=== PATIENT | female | born 1965 | race Caucasian/White ===

== ENCOUNTER → 2024-01-22 09:22 | Outpatient (REF) | payer OTHER, SELFPAY | LOC: MRI 3T 09:22 | PROVIDERS: ATTENDING PHYSICIAN Physical Medicine & Rehabilitation; FAMILY PHYSICIAN Family Medicine | DX: M54.16 Radiculopathy, lumbar region (principal) | CPT/HCPCS: 72148 ==

== ENCOUNTER → 2024-03-09 10:18 | Outpatient (REF) | payer OTHER, SELFPAY | LOC: WDC 10:18 | PROVIDERS: ATTENDING PHYSICIAN Family Medicine; FAMILY PHYSICIAN Family Medicine | DX: Z12.31 Encounter for screening mammogram for malignant neoplasm of breast (principal) | CPT/HCPCS: 77063; 77067 ==

== ENCOUNTER 2024-06-19 09:25 | Emergency (ER) | payer OTHER, SELFPAY ==
[2024-06-19 09:27] VITALS: BP 146/100
[2024-06-19 09:58] LABS: COVID-19 Antigen Negative (Negative)
[2024-06-19 12:00] VITALS: BP 134/62
[2024-06-19 12:19] LABS: % Basophils 0.5 % (0-2); % Immature Granulocytes 0.5 % (0-0.5); % Lymphocytes 17.8 % (20.5-51.1); % Neutrophils 73.2 % (42.2-75.2); Absolute Lymphocytes 0.7 10^3/uL (1.2-3.4); Absolute Monocytes 0.3 10^3/uL (0.1-0.6); Hematocrit 45.5 % (37.0-47.0); Hemoglobin 15.6 g/dL (12.0-16.0); Mean Corp Hgb Conc. 34.3 g/dL (33.0-37.0); Mean Corpuscular Hgb 30.9 pg (27.0-31.0); Mean Corpuscular Volume 90.1 fL (81.0-99.0); Mean Platelet Volume 9.9 fL (7.4-10.4); Nucleated Red Blood Cells % 0 %; Platelet Count 201 10^3/uL (130-400); Red Blood Cell Count 5.05 10^6/uL (4.20-5.40); Red Cell Dist. Width 12.3 % (11.5-14.5); White Blood Cell Count 4.1 10^3/uL (4.8-10.8)
[2024-06-19] MEDS: MYCOSTATIN ORAL SUSPENSION 5 ML PO (12:42)
[2024-06-19 13:42] LABS: ALT (SGPT) 44 U/L (0-35); AST (SGOT) 60 U/L (14-36); Alkaline Phosphatase 63 U/L (38-126); Blood Urea Nitrogen 22 mg/dl (7-17); Calcium 9.3 mg/dl (8.4-10.2); Carbon Dioxide 22 mmol/L (22-30); Chloride 99 mmol/L (98-107); Glucose 84 mg/dl (70-99); Potassium 4.5 mmol/L (3.5-5.1); Sodium 135 mmol/L (135-145); Total Bilirubin 0.7 mg/dl (0.2-1.3); Total Protein 7.7 g/dl (6.3-8.2); eGFR > 60.00
--- NOTE | 2024-06-19 13:46 | ED.GENMED ---
History of Present Illness
General
Chief Complaint: Cold/Flu/URI Symptoms
Source: patient
Exam Limitations: none
Time Seen by Provider: 06/19/24 11:01
Nursing documentation reviewed up to this point in time: agreed with
History of Present Illness
History of Present Illness:
58-year-old female with past medical history of chronic back pain presenting to the emergency department today with concerns of upper respiratory symptoms body aches over the past 4 days. Developing change in taste and generalized weakness over the
past day or so. Also some discomfort to the left upper quadrant of the abdomen. Denies any nausea vomiting.
Past History
Past History
ED Past Medical History: None
ED Past Surgical History: None
Social History
Tobacco: Non-smoker
Personal:
Living: with family
Review of Systems
Review of Systems
Allergies reviewed?: Yes
All Other Systems: ROS reviewed and negative except as documented in HPI and ROS
Phy Exam
Physical Exam
Physical Exam:
GENERAL: Alert , in no apparent distress
EYE: pupils equal and reactive
NECK: Supple, no significant adenopathy.
ENT: White discoloration of the tongue o/p clr, mmm.
CARDIAC: Regular rate and rhythm .
LUNGS: Clear breath sounds bilaterally, no acute respiratory distress, no wheezes/rales/rhonchi
ABDOMEN: Soft, without focal tenderness, no r/g, no cvat
NEUROLOGICAL: Alert and oriented, no focal neuro deficits
SKIN: Warm and dry, skin intact.
MUSCULOSKELETAL: No edema, well perfused.
PSYCH: Normal and appropriate interaction.
Course
Orders/Labs/Results
Orders:
Orders
06/19/24 09:32
COVID-19 Antigen Urgent
Source: Nasal Swab
Influenza A+B Rapid Molecular Urgent
LATASHA Source: Nasal Swab
Specimen Description:
06/19/24 12:13
CBC/With Diff [Complete Blood Count/With Diff] Urgent
06/19/24 13:00
Nystatin Suspension [Mycostatin Oral Suspension] 5 ml PO ONCE ONE
06/19/24 13:12
Comprehensive Metabolic Panel Urgent
Monotest Urgent
Comment: ADD ON
06/19/24 13:43
Urinalysis Reflex To Culture Urgent
Date Specimen was Collected: 06/19/24
Time Specimen was Collected: 13:42
Urine Microscopic Reflex Cult Urgent
06/19/24 13:51
Add On- LAB Urgent
Tests Added?: Hemphill screen
06/19/24 13:52
0.9% Sodium Chloride 1000 ml [Nss] 1,000 ml IV BOLUS
06/19/24 14:13
Ibuprofen [Motrin] 600 mg PO NOW STA
06/19/24 14:29
Vital Signs- Treatment ONCE
Frequency: Once
Abnormal Lab Results
06/19/24 06/19/24 06/19/24
12:13 13:12 13:43
WBC 4.1 L 10^3/uL
(4.8-10.8)
Absolute Lymphs (auto) 0.7 L 10^3/uL
(1.2-3.4)
Lymphocytes % 17.8 L %
(20.5-51.1)
BUN 22 H mg/dl
(7-17)
AST 60 H U/L
(14-36)
ALT 44 H U/L
(0-35)
Urine Ketones 3+ A
(Negative)
Urine Bacteria (Reflex) Few A
(Negative)
Urine Albumin (Reflex) 2+ A
(Neg - Trace)
06/19/24 12:13
06/19/24 13:12
Vital Signs
Initial and Last Documented VS:
Initial Vital Signs
Temp Pulse Resp BP Pulse Ox
100.3 F 112 16 146/100 100
06/19/24 09:27 06/19/24 09:27 06/19/24 09:27 06/19/24 09:27 06/19/24 09:27
Last Documented Vital Signs
Temp Pulse Resp BP Pulse Ox
100.3 F 85 16 129/86 99
06/19/24 09:27 06/19/24 14:00 06/19/24 14:00 06/19/24 14:00 06/19/24 14:00
MDM/Problems Addressed
MDM/Problems Addressed:
58-year-old female presenting to the emergency department today with concerns of flulike symptoms over the past 4 days. Also has noticed a change in her taste. Things seem to be tasting poor over the past 24 hours. Mildly tachycardic on arrival.
Improved after receiving fluids. Patient does have some white discoloration of her tongue potentially consistent with fungal infection was given a dose of nystatin. Here labs without emergent findings very slight elevation of liver function test
she claims that he does drink wine most nights. Urinalysis without infection COVID and flu negative. Was given fluids with improving symptoms. Otherwise stable for outpatient management return precautions given.
*Critical Care Note
Total Time (30-74mins, 75-104mins- exclusive of procedures): Not Applicable
ED Attending Note
-
Portions of this chart may have been created with voice recognition software.� Occasional wrong word or��sound alike� substitutions may have occurred due to the inherent limitations of voice recognition software.
Discharge Plan
Departure
Patient Disposition: Home (Routine Discharge)
Date of Disposition: 06/19/24
Time of Disposition: 15:13
Patient with high blood pressure during this ER visit?: No
Condition: Good
Covid-19: Not Applicable
Discharge Problem:
Acute viral syndrome, Thrush
Instructions: Viral Syndrome (DC)
Prescriptions:
New
nystatin 100,000 unit/mL suspension
100,000 unit PO DAILY Qty: 250 0RF
No Action
Advil
2 tab PO PRN PRN (Reason: pain)
Vitamin D
penicillin V potassium 500 MG tablet
500 mg PO TID Qty: 30 0RF
diclofenac sodium 75 MG tablet,delayed release (DR/EC)
75 mg PO BID Qty: 10 0RF
ondansetron 4 MG tablet,disintegrating
4 mg PO TIDPRN PRN (Reason: nausea) Qty: 10 0RF
sulfamethoxazole-trimethoprim 1 TABLET tablet
1 tab PO BID Qty: 14 0RF
Referrals:
Ayan Tejada Jr., DO [Family Provider] -
Activity Restrictions/Additional Instructions:
You came to the emergency department today with concerns of symptoms likely consistent with viral syndrome. Please take the nystatin as well for possible thrush. For any ongoing symptoms it is important follow-up with the primary care doctor to
get reassessed and ensure there is no progression of symptoms and you may need further assessment. Return for any worsening, new or concerning symptoms.
Interventions
Interventions:
*Risk Screen - Suicide Last Done: 06/19/24 12:00
*General Assessment Last Done: 06/19/24 12:00
*Neglect/Abuse Screening Last Done: 06/19/24 12:00
*ED COVID-19 Vaccine History Last Done: 06/19/24 12:00
ED- Pulmonary Assessment Last Done: 06/19/24 12:00
Discharge Date and Time
Print Language: CROATIAN
[2024-06-19 13:56] LABS: Urine Albumin 2+ (Neg - Trace); Urine Bilirubin Negative (Negative); Urine Character Slightly Cloudy (Clear); Urine Color Yellow; Urine Glucose Negative (Negative); Urine Ketone 3+ (Negative); Urine Leukocyte Negative (Negative); Urine Nitrite Negative (Negative); Urine Occult Blood Negative (Negative); Urine Specific Gravity 1.025 (<1.030); Urine Urobilinogen Negative (Neg - 1+)
[2024-06-19 14:00] VITALS: BP 129/86
[2024-06-19 14:02] LABS: Urine Bacteria Few (Negative); Urine Red Blood Cell 0-2 /HPF (0-2); Urine Squamous Cell 16-20 /LPF (Few)
[2024-06-19] MEDS: NSS 1000 IV (14:03)
[2024-06-19 16:36] LABS: Monotest Negative (Negative)
== END 2024-06-19 15:26 | disposition home or self-care (01) ==
LOC: EMR 09:25
PROVIDERS: Physician Assistant; EMERGENCY PHYSICIAN Student in an Organized Health Care Education/Training Program; FAMILY PHYSICIAN Family Medicine
DX: B37.9 Candidiasis, unspecified (principal); B34.9 Viral infection, unspecified; G89.29 Other chronic pain; M54.9 Dorsalgia, unspecified; Z11.52 Encounter for screening for COVID-19
CPT/HCPCS: 99284; 96360; 80053; 81003; 81015; 85025; 86308; 87502; 87811

== ENCOUNTER → 2024-11-15 11:19 | Outpatient (REF) | payer OTHER, SELFPAY | LOC: RAD 11:19 | PROVIDERS: ATTENDING PHYSICIAN Family Medicine | DX: M17.0 Bilateral primary osteoarthritis of knee (principal) | CPT/HCPCS: 73564 ==

== ENCOUNTER → 2025-04-04 14:38 | Outpatient (REF) | payer OTHER, SELFPAY | LOC: WDC 14:38 | PROVIDERS: ATTENDING PHYSICIAN Nurse Practitioner Adult Health; FAMILY PHYSICIAN Family Medicine | DX: Z12.31 Encounter for screening mammogram for malignant neoplasm of breast (principal) | CPT/HCPCS: 77063; 77067 ==